=== PATIENT | female | born 1995 | race Caucasian/White ===

== ENCOUNTER 2017-03-21 10:48 | Emergency (ER) | payer BC ==
[~2017-03-21] VITALS: Ht 165.1 cm; Wt 56.0 kg
[2017-03-21 10:51] VITALS: TEMP 37; Ht 165.1 cm; Wt 56.0 kg
[2017-03-21] MEDS ORDERED: BCPILLS PO (11:19)
[2017-03-21] MEDS ORDERED: SODIUM CHLORIDE 0.9% 1000ML 1,000 ML IV STA (11:23)
[2017-03-21 11:31] LABS: BASO % 1.1 %; BASO ABS # 0.08 K/uL (0-0.2); EOS ABS # 0.23 K/uL (0-0.5); HEMATOCRIT 40.2 % (37-47); HEMOGLOBIN 14.1 g/dL (12.0-16.0); IG# 0.02 K/uL (0.00-0.02); LYMPH % 32.3 %; LYMPH ABS # 2.45 K/uL (1.2-3.4); MEAN CELL VOLUME 86.8 fL (80-100); MEAN CORPUSCULAR HEMOGLOBIN 30.5 pg (25-34); MEAN CORPUSCULAR HGB CONC 35.1 g/dl (32-36); MEAN PLATELET VOLUME 9.4 fL (7.4-10.4); MONO % 4.7 %; MONO ABS # 0.36 K/uL (0.11-0.59); NEUT % 58.6 %; NEUT ABS # 4.44 K/uL (1.4-6.5); PLATELET COUNT 289 K/uL (130-400); RED CELL DISTRIBUTION WIDTH CV 12.9 % (11.5-14.5); RED CELL DISTRIBUTION WIDTH SD 41.3 fL (36.4-46.3); WHITE BLOOD COUNT 7.58 K/uL (4.8-10.8)
[2017-03-21 11:42] LABS: ALBUMIN 3.9 gm/dl (3.4-5.0); CREATININE 0.81 mg/dl (0.60-1.20); POTASSIUM 3.6 mmol/L (3.5-5.1)
[2017-03-21] MEDS ORDERED: OPTIRAY 320 IV PRN (11:45)
[2017-03-21 11:53] LABS: TOTAL PROTEIN 7.7 gm/dl (6.4-8.2)
--- NOTE | 2017-03-21 14:37 | DIAGNOSTIC IMAGING REPORT ---
CT ABD/PELVIS IV AND ORAL CONT CLINICAL HISTORY: Persistent diarrhea, bright red blood in stool. Watery stools. Abdominal pain. COMPARISON STUDY: None. TECHNIQUE: Following the IV administration of 119 mL of Optiray-320, CT scan of the abdomen and pelvis was performed from the lung bases to the proximal femurs. Images are reviewed in the axial, sagittal, and coronal planes. IV contrast was administered without complication. A dose lowering technique was utilized adhering to the principles of ALARA. CT DOSE: 277.02 mGy.cm FINDINGS: Lower chest: The heart is normal in size and configuration, without pericardial effusion. The lung bases and pleural spaces are clear. Liver: The contrast-enhanced liver is normal in size, contour, and attenuation. There is no intrahepatic biliary ductal dilatation. The hepatic veins and portal veins are patent. Gallbladder: Unremarkable. Spleen: Normal in size and attenuation. Pancreas: Unremarkable. Adrenal glands: Unremarkable. Kidneys: There is symmetric renal cortical enhancement. The kidneys are normal in size without hydronephrosis. Bowel: There are no transition zones to indicate bowel obstruction. There is no acute diverticulitis. There is borderline rectal wall thickening versus a nondistended segment area There are no findings to indicate acute appendicitis. Peritoneum: There is trace free fluid likely physiologic Vasculature: The abdominal aorta is normal in course and caliber. Adenopathy: None. Pelvic viscera: The bladder, and pelvic viscera are unremarkable. Skeletal structures: No destructive osseous lesions are seen. IMPRESSION: 1. Borderline rectal wall thickening versus nondistended bowel. Otherwise no acute findings. No evidence of bowel obstruction. No evidence of free air. No evidence of acute appendicitis. No evidence of acute diverticulitis. Electronically signed by: Hamlet Goyal M.D. 03/21/2017 2:35 PM Dictated Date/Time: 03/21/2017 2:30 PM
--- NOTE | 2017-03-21 17:32 | EMERGENCY ROOM VISIT NOTE ---
History First contact with patient: 11:14 Chief Complaint: DIARRHEA Stated Complaint: ALANIS/ABD PAIN, SENT FROM [employer] [facility] History of Present Illness The patient is a 21 year old female who presents to the Emergency Room via private vehicle with complaints of "diarrhea, abdominal pain, sent from [email or web address]". The patient states that she has had diarrhea now for almost a month and notes that it has now worsened over the past week and now over the past few days she is experiencing 3-4 episodes per hour. It is watery in nature and she notes that every time she eats or drinks something it seems to go right through her and that she has diarrhea. She states that she has missed work because of this. She states that she was seen at [facility] today who sent her here for evaluation. She rates the overall pain as a 4/0. She denies chance of . She denies a history of Crohn's or ulcerative colitis. She does note that a few years ago back in 2011 she was diagnosed with colitis and was hospitalized at that time and had her appendix removed. She denies any fevers or chills. Review of Systems A complete 10-point Review of Systems was discussed with the patient, with pertinent positives and negatives listed in the History of Present Illness. All remaining Review of Systems questions can be considered negative unless otherwise specified. Past Medical/Surgical History Colitis in 2011 Family History No pertinent. Social History Patient lives locally and is a [employer] student. Current/Historical Medications Scheduled Control Pills ( Control Pills), 1 TAB PO DAILY Physical Exam Vital Signs Date Time Temp Pulse Resp B/P (MAP) Pulse Ox O2 Delivery O2 Flow Rate FiO2 03/21/17 17:43 81 16 100/68 100 03/21/17 15:14 71 16 108/74 98 03/21/17 12:31 78 16 109/85 99 03/21/17 11:36 92 14 109/84 98 Room Air 03/21/17 10:51 37.0 92 16 127/80 98 Room Air Physical Exam VITAL SIGNS - Vital signs and nursing notes were reviewed. Stable. Afebrile. GENERAL -21-year-old female appearing her stated age who is in no acute distress. She is nontoxic in appearance. Communicates well with provider and answers questions appropriately. SKIN - Without rashes. No petechial rashes. HEAD - NC/AT. EYES - Sclera anicteric. LUNGS - Chest wall symmetric without accessory muscle use, intercostals retractions, or central cyanosis. Normal vesicular breath sounds CTA B/L. No wheezes, rales, or rhonchi appreciated. CARDIAC - RRR with S1/S2. No murmur, rubs, or gallops appreciated. ABDOMEN - Abdominal contour normal without pulsations or visible masses. BS normoactive all four quadrants. There is generalized lower quadrant abdominal tenderness noted. No palpable masses, hepatosplenomegaly, or ascites noted. Medical Decision & Procedures ER Provider Diagnostic Interpretation: CT ABD/PELVIS IV AND ORAL CONT CLINICAL HISTORY: Persistent diarrhea, bright red blood in stool. Watery stools. Abdominal pain. COMPARISON STUDY: None. TECHNIQUE: Following the IV administration of 119 mL of Optiray-320, CT scan of the abdomen and pelvis was performed from the lung bases to the proximal femurs. Images are reviewed in the axial, sagittal, and coronal planes. IV contrast was administered without complication. A dose lowering technique was utilized adhering to the principles of ALARA. CT DOSE: 277.02 mGy.cm FINDINGS: Lower chest: The heart is normal in size and configuration, without pericardial effusion. The lung bases and pleural spaces are clear. Liver: The contrast-enhanced liver is normal in size, contour, and attenuation. There is no intrahepatic biliary ductal dilatation. The hepatic veins and portal veins are patent. Gallbladder: Unremarkable. Spleen: Normal in size and attenuation. Pancreas: Unremarkable. Adrenal glands: Unremarkable. Kidneys: There is symmetric renal cortical enhancement. The kidneys are normal in size without hydronephrosis. Bowel: There are no transition zones to indicate bowel obstruction. There is no acute diverticulitis. There is borderline rectal wall thickening versus a nondistended segment area There are no findings to indicate acute appendicitis. Peritoneum: There is trace free fluid likely physiologic Vasculature: The abdominal aorta is normal in course and caliber. Adenopathy: None. Pelvic viscera: The bladder, and pelvic viscera are unremarkable. Skeletal structures: No destructive osseous lesions are seen. IMPRESSION: 1. Borderline rectal wall thickening versus nondistended bowel. Otherwise no acute findings. No evidence of bowel obstruction. No evidence of free air. No evidence of acute appendicitis. No evidence of acute diverticulitis. Electronically signed by: Hamlet Goyal M.D. 03/21/2017 2:35 PM Dictated Date/Time: 03/21/2017 2:30 PM Laboratory Results 03/21/17 11:10 Red Blood Count 4.63, Mean Corpuscular Volume 86.8, Mean Corpuscular Hemoglobin 30.5, Mean Corpuscular Hemoglobin Concent 35.1, Mean Platelet Volume 9.4, Neutrophils (%) (Auto) 58.6, Lymphocytes (%) (Auto) 32.3, Monocytes (%) (Auto) 4.7, Eosinophils (%) (Auto) 3.0, Basophils (%) (Auto) 1.1, Neutrophils # (Auto) 4.44, Lymphocytes # (Auto) 2.45, Monocytes # (Auto) 0.36, Eosinophils # (Auto) 0.23, Basophils # (Auto) 0.08 03/21/17 11:10 Test 03/21/17 11:10 03/21/17 14:12 03/21/17 14:13 White Blood Count 7.58 K/uL (4.8-10.8) Red Blood Count 4.63 M/uL (4.2-5.4) Hemoglobin 14.1 g/dL (12.0-16.0) Hematocrit 40.2 % (37-47) Mean Corpuscular Volume 86.8 fL (80-100) Mean Corpuscular Hemoglobin 30.5 pg (25-34) Mean Corpuscular Hemoglobin Concent 35.1 g/dl (32-36) Platelet Count 289 K/uL (130-400) Mean Platelet Volume 9.4 fL (7.4-10.4) Neutrophils (%) (Auto) 58.6 % Lymphocytes (%) (Auto) 32.3 % Monocytes (%) (Auto) 4.7 % Eosinophils (%) (Auto) 3.0 % Basophils (%) (Auto) 1.1 % Neutrophils # (Auto) 4.44 K/uL (1.4-6.5) Lymphocytes # (Auto) 2.45 K/uL (1.2-3.4) Monocytes # (Auto) 0.36 K/uL (0.11-0.59) Eosinophils # (Auto) 0.23 K/uL (0-0.5) Basophils # (Auto) 0.08 K/uL (0-0.2) RDW Standard Deviation 41.3 fL (36.4-46.3) RDW Coefficient of Variation 12.9 % (11.5-14.5) Immature Granulocyte % (Auto) 0.3 % Immature Granulocyte # (Auto) 0.02 K/uL (0.00-0.02) Anion Gap 8.0 mmol/L (3-11) Est Creatinine Clear Calc Drug Dose 98.8 ml/min Estimated GFR () 122.0 Estimated GFR (Non- 105.3 BUN/Creatinine Ratio 14.0 (10-20) Calcium Level 9.0 mg/dl (8.5-10.1) Magnesium Level 2.0 mg/dl (1.8-2.4) Total Bilirubin 0.5 mg/dl (0.2-1) Aspartate Amino Transf (AST/SGOT) 20 U/L (15-37) Alanine Aminotransferase (ALT/SGPT) 31 U/L (12-78) Alkaline Phosphatase 53 U/L (45-117) Total Protein 7.7 gm/dl (6.4-8.2) Albumin 3.9 gm/dl (3.4-5.0) Globulin 3.8 gm/dl (2.5-4.0) Albumin/Globulin Ratio 1.0 (0.9-2) Lipase 139 U/L (73-393) Thyroid Stimulating Hormone (TSH) 1.420 uIu/ml (0.300-4.500) Urine Color YELLOW Urine Appearance CLEAR (CLEAR) Urine pH 6.5 (4.5-7.5) Urine Specific [place] 1.006 (1.000-1.030) Urine Protein NEG (NEG) Urine Glucose (UA) NEG (NEG) Urine Ketones NEG (NEG) Urine Occult Blood NEG (NEG) Urine Nitrite NEG (NEG) Urine Bilirubin NEG (NEG) Urine Urobilinogen NEG (NEG) Urine Leukocyte Esterase NEG (NEG) Urine Test NEG (NEG) Date/Time Source Procedure Growth Status 03/21/17 14:13 Stool C.difficile Toxin B Gene (PCR) - Final No C. difficile toxin B gene detected Complete Medications Administered Medications (Trade) Dose Ordered Sig/Zack Route Start Time Stop Time Status Last Admin Dose Admin Sodium Chloride 1,000 ml @ 999 mls/hr Q1H1M STAT IV 03/21/17 11:23 03/21/17 12:23 DC 03/21/17 11:25 999 MLS/HR Medical Decision Patient was seen and evaluated as above. She presents to us today with diarrhea and abdominal pain. She is nontoxic on exam. She is otherwise healthy. She has no other upper respiratory or constitutional symptoms. IV access was initiated, and the above workup was performed. Benefits versus risk of obtaining CT scan was discussed, and the decision was made to obtain a CT scan of the abdomen and pelvis with IV and oral contrast second to the amount of tenderness and pain she had been experiencing. In regard to her blood work, there is no concerning leukocytosis or anemia. Chemistry panel reveals no evidence of kidney or liver failure. Lipase and TSH normal. Urine negative. Urine test negative. Giardia stool study pending. C. difficile negative. Stool culture and Shigella toxin pending. Vital signs were stable throughout her stay. She was hydrated with normal saline and declined pain medication. CT results reveal questionable thickening in the rectal region otherwise normal study. I suspect she is likely experiencing a viral gastroenteritis that is superimposed upon her underlying chronic IBS. It is also possible that she could be experiencing influenza however given her presentation favor this to be less likely. With lack of elevated white blood cell count or abnormal CT scan I believe that this is likely of nonemergent etiology. By mouth fluid trial was had here and she continued to have diarrhea but was nontoxic. I discussed the case with the attending physician, and subsequently the on-call GI specialist, Dr. Menezes. We feel the patient was stable for outpatient management follow with her family doctor, and if need be to have a GI referral. I believe this is reasonable. I will recommend a bland diet. The patient was educated upon management, educated upon worrisome symptoms in which to return, had questions answered prior to discharge, and was discharged home in good condition. In evaluation and treatment of this patient following differential diagnoses were entertained: Appendicitis, ovarian torsion, gastroenteritis, colitis, ulcerative colitis, Crohn's, among others. Impression Primary Impression: Diarrhea Departure Information Dispostion Home / Self-Care Condition GOOD Referrals No Doctor, Assigned (PCP) Latonia Menezes, DO [facility] Patient Instructions ED Diet [place], [facility] Additional Instructions You have been treated in the Emergency Department your Abdominal Pain and diarrhea. Laboratory results and imaging studies have ruled out any emergent causes for your abdominal pain which would warrant admission or surgery. Please call back here in 2 days for stool culture results ([phone]) Rest, drink plenty of fluids and please refer to attached bland diet handout. For pain control, you can use the following [id number] medicines: - Regular strength (325mg/tab) Tylenol (acetaminophen) 2 tabs every 4-6 hours as needed. Do not exceed 12 tablets in a 24 hour period. Avoid taking more than 3 grams (3000 mg) of Tylenol per day. This includes any other sources of acetaminophen you may take on a regular basis. - Regular strength (200 mg/tab) Advil (ibuprofen) 1-2 tabs every 4-6 hours as needed. Do not exceed a dose of 3200 mg per day. Drink plenty of water and stay well hydrated. As with any trip to the Emergency Department, you should follow-up with your Primary Care Provider from today's visit. Return to the emergency department if your symptoms persist despite treatment plan outlined above or if the following symptoms occur: increased fevers, chills , worsening nausea/vomiting/diarrhea, more blood in your stool or urine. CT ABD/PELVIS IV AND ORAL CONT CLINICAL HISTORY: Persistent diarrhea, bright red blood in stool. Watery stools. Abdominal pain. COMPARISON STUDY: None. TECHNIQUE: Following the IV administration of 119 mL of Optiray-320, CT scan of the abdomen and pelvis was performed from the lung bases to the proximal femurs. Images are reviewed in the axial, sagittal, and coronal planes. IV contrast was administered without complication. A dose lowering technique was utilized adhering to the principles of ALARA. CT DOSE: 277.02 mGy.cm FINDINGS: Lower chest: The heart is normal in size and configuration, without pericardial effusion. The lung bases and pleural spaces are clear. Liver: The contrast-enhanced liver is normal in size, contour, and attenuation. There is no intrahepatic biliary ductal dilatation. The hepatic veins and portal veins are patent. Gallbladder: Unremarkable. Spleen: Normal in size and attenuation. Pancreas: Unremarkable. Adrenal glands: Unremarkable. Kidneys: There is symmetric renal cortical enhancement. The kidneys are normal in size without hydronephrosis. Bowel: There are no transition zones to indicate bowel obstruction. There is no acute diverticulitis. There is borderline rectal wall thickening versus a nondistended segment area There are no findings to indicate acute appendicitis. Peritoneum: There is trace free fluid likely physiologic Vasculature: The abdominal aorta is normal in course and caliber. Adenopathy: None. Pelvic viscera: The bladder, and pelvic viscera are unremarkable. Skeletal structures: No destructive osseous lesions are seen.
[2017-03-21 17:43] VITALS: BP 100/68; PULSE 81; O2SAT 100
== END 2017-03-21 17:44 | disposition home or self-care (01) ==
LOC: C.EDB 10:49 → C.EDC 17:44
DX: R19.7 Diarrhea, unspecified (principal); R10.30 Lower abdominal pain, unspecified

== ENCOUNTER 2017-05-12 18:22 | Emergency (ER) | payer BC ==
[~2017-05-12] VITALS: Ht 165.1 cm; Wt 55.9 kg
[~2017-05-12 18:22] MED LIST: BCPILLS PO
[2017-05-12 18:25] VITALS: TEMP 37.1; Ht 165.1 cm; Wt 55.9 kg
[2017-05-12] MEDS ORDERED: SODIUM CHLORIDE 0.9% 1000ML 1,000 ML IV STA (18:34)
[2017-05-12 18:49] LABS: BASO % 0.5 %; BASO ABS # 0.06 K/uL (0-0.2); EOS % 1.6 %; HEMATOCRIT 43.6 % (37-47); HEMOGLOBIN 15.4 g/dL (12.0-16.0); IG# 0.02 K/uL (0.00-0.02); LYMPH % 28.3 %; LYMPH ABS # 3.51 K/uL (1.2-3.4); MEAN CELL VOLUME 87.4 fL (80-100); MEAN CORPUSCULAR HEMOGLOBIN 30.9 pg (25-34); MEAN CORPUSCULAR HGB CONC 35.3 g/dl (32-36); MEAN PLATELET VOLUME 9.1 fL (7.4-10.4); MONO % 4.3 %; MONO ABS # 0.53 K/uL (0.11-0.59); NEUT % 65.1 %; NEUT ABS # 8.09 K/uL (1.4-6.5); PLATELET COUNT 336 K/uL (130-400); RED CELL DISTRIBUTION WIDTH CV 13.1 % (11.5-14.5); RED CELL DISTRIBUTION WIDTH SD 41.7 fL (36.4-46.3); WHITE BLOOD COUNT 12.41 K/uL (4.8-10.8)
[2017-05-12 19:07] LABS: CALCIUM 9.9 mg/dl (8.5-10.1); CREATININE 0.81 mg/dl (0.60-1.20); POTASSIUM 3.6 mmol/L (3.5-5.1)
[2017-05-12] MEDS ORDERED: DIPH25CA5 PO (19:13)
[2017-05-12] MEDS ORDERED: DICY10CA12 PO (19:13)
[2017-05-12] MEDS ORDERED: CIPROFLOXACIN 500 MG TAB PO STA (19:54)
[2017-05-12] MEDS ORDERED: CIPR-255 PO (20:30)
[2017-05-12 20:39] VITALS: BP 110/60; PULSE 89; O2SAT 98
--- NOTE | 2017-05-12 23:02 | EMERGENCY ROOM VISIT NOTE ---
History Report prepared by Ike: Kimo Orona Under the Supervision of: Dr. Kolton Lima M.D. First contact with patient: 18:27 Chief Complaint: HEMATURIA Stated Complaint: BLOOD IN URINE Nursing Triage Summary: patient c/o burning/ painful urination. patient also c/o blod in urine. patient sent to ER from [facility] to r/o kidney stone History of Present Illness The patient is a 21 year old female who presents to the Emergency Room with complaints of persistent hematuria that began earlier this afternoon, about 3 hours ago. The patient states that she first noticed "red cloudiness" in her urine, and then found a clot when she wiped. She had to urinate again shortly after and she passed another large clot with "a lot" of blood in the toilet bowl. The patient states that there was also "burning" with urinating when she passed these clots. She is having some pain in her lower abdomen over her bladder and was found to have left flank tenderness when she went to [facility] just prior to coming into the ED. She had a urine analysis performed which was questionable for a possible kidney infection/stone. The patient did have a CT scan in March which did not show any stones. She states that she has been nauseous, but has not vomited and there has not been any abnormal vaginal discharge or bleeding. The CT scan in March did show some wall-thickening in the rectum which she has had a colonoscopy for 2 weeks. She reports the colonoscopy was reported as normal although she does not know the biopsy results. Source of History: patient Onset: 3 hours [employer]ICAL [employer] PROF[employer] Position: other (Genitourinary) Quality: burning, other (Hematuria) Timing: other (Persistent) Associated Symptoms: + abdominal pain Review of Systems See HPI for pertinent positives & negatives. A total of 10 systems reviewed and were otherwise negative. Past Medical & Surgical Hx of Appendectomy Family History Cancer Diabetes mellitus Social History Smoking Status: Never Smoker Marital Status: single Housing Status: lives with family, lives with roommate Occupation Status: employed Current/Historical Medications Scheduled Control Pills ( Control Pills), 1 TAB PO DAILY Ciprofloxacin Hcl (Cipro), 500 MG PO BID Scheduled PRN Dicyclomine Hcl (Dicyclomine Hcl), 1 CAP PO QID PRN for PRN Diphenhydramine Hcl (Benadryl), 25 MG PO HS PRN for Sleep Allergies Coded Allergies: Amoxicillin (Verified Adverse Reaction, Severe, SEVERE DIARRHEA, 05/12/17) Physical Exam Vital Signs Date Time Temp Pulse Resp B/P (MAP) Pulse Ox O2 Delivery O2 Flow Rate FiO2 05/12/17 20:39 89 18 110/60 98 05/12/17 18:25 37.1 91 18 123/83 98 Room Air Physical Exam Constitutional: Vital signs reviewed. Eyes: Pupils are equal round reactive to light. Conjunctiva are noninjected. ENT: Pharynx is clear without erythema or exudate. Mucous membranes are moist. Neck supple without meningeal signs. Respiratory: Clear to auscultation bilaterally. Breath sounds are equal bilaterally. Cardiovascular: Regular rate and rhythm. No rubs or gallops. GI: Soft, nondistended and nontender. Bowel sounds are present. Musculoskeletal: No peripheral edema. There is Left CVA tenderness on exam. Integumentary: No cyanosis. Neurological: The patient is awake and alert. No focal deficits. Psychiatric: Normal affect. Medical Decision & Procedures Laboratory Results 05/12/17 18:35 Red Blood Count 4.99, Mean Corpuscular Volume 87.4, Mean Corpuscular Hemoglobin 30.9, Mean Corpuscular Hemoglobin Concent 35.3, Mean Platelet Volume 9.1, Neutrophils (%) (Auto) 65.1, Lymphocytes (%) (Auto) 28.3, Monocytes (%) (Auto) 4.3, Eosinophils (%) (Auto) 1.6, Basophils (%) (Auto) 0.5, Neutrophils # (Auto) 8.09, Lymphocytes # (Auto) 3.51, Monocytes # (Auto) 0.53, Eosinophils # (Auto) 0.20, Basophils # (Auto) 0.06 05/12/17 18:35 Test 05/12/17 18:35 05/12/17 19:15 White Blood Count 12.41 K/uL (4.8-10.8) Red Blood Count 4.99 M/uL (4.2-5.4) Hemoglobin 15.4 g/dL (12.0-16.0) Hematocrit 43.6 % (37-47) Mean Corpuscular Volume 87.4 fL (80-100) Mean Corpuscular Hemoglobin 30.9 pg (25-34) Mean Corpuscular Hemoglobin Concent 35.3 g/dl (32-36) Platelet Count 336 K/uL (130-400) Mean Platelet Volume 9.1 fL (7.4-10.4) Neutrophils (%) (Auto) 65.1 % Lymphocytes (%) (Auto) 28.3 % Monocytes (%) (Auto) 4.3 % Eosinophils (%) (Auto) 1.6 % Basophils (%) (Auto) 0.5 % Neutrophils # (Auto) 8.09 K/uL (1.4-6.5) Lymphocytes # (Auto) 3.51 K/uL (1.2-3.4) Monocytes # (Auto) 0.53 K/uL (0.11-0.59) Eosinophils # (Auto) 0.20 K/uL (0-0.5) Basophils # (Auto) 0.06 K/uL (0-0.2) RDW Standard Deviation 41.7 fL (36.4-46.3) RDW Coefficient of Variation 13.1 % (11.5-14.5) Immature Granulocyte % (Auto) 0.2 % Immature Granulocyte # (Auto) 0.02 K/uL (0.00-0.02) Anion Gap 9.0 mmol/L (3-11) Est Creatinine Clear Calc Drug Dose 98.6 ml/min Estimated GFR () 122.0 Estimated GFR (Non- 105.3 BUN/Creatinine Ratio 13.9 (10-20) Calcium Level 9.9 mg/dl (8.5-10.1) Urine Color YELLOW Urine Appearance CLOUDY (CLEAR) Urine pH 6.0 (4.5-7.5) Urine Specific [place] 1.018 (1.000-1.030) Urine Protein TRACE (NEG) Urine Glucose (UA) NEG (NEG) Urine Ketones TRACE (NEG) Urine Occult Blood 3+ (NEG) Urine Nitrite NEG (NEG) Urine Bilirubin NEG (NEG) Urine Urobilinogen NEG (NEG) Urine Leukocyte Esterase MODERATE (NEG) Urine WBC (Auto) >30 /hpf (0-5) Urine RBC (Auto) >30 /hpf (0-4) Urine Hyaline Casts (Auto) 5-10 /lpf (0-5) Urine Epithelial Cells (Auto) >30 /lpf (0-5) Urine Bacteria (Auto) NEG (NEG) Urine Renal Epithelial Cells /lpf (0-5) Urine Test NEG (NEG) Laboratory results as reviewed by me. Medications Administered Medications (Trade) Dose Ordered Sig/Zack Route Start Time Stop Time Status Last Admin Dose Admin Sodium Chloride 1,000 ml @ 999 mls/hr Q1H1M STAT IV 05/12/17 18:34 05/12/17 19:34 DC 05/12/17 18:34 999 MLS/HR Ciprofloxacin (Cipro Tab) 500 mg NOW STAT PO 05/12/17 19:54 05/12/17 19:56 DC 05/12/17 20:04 500 MG ED Course 1830: The patient was evaluated in room B4B. A complete history and physical exam was performed. 1833: Ordered Sodium Chloride 1000 mL @ 999 mL/hr IV. 1953: Ordered Ciprofloxacin 500 mg PO. 2016: I discussed the test results with the patient at this time. I also discussed Cipro, and its potential adverse effects. The patient expresses understanding and agreement. She will be discharged home. Medical Decision This is a 21-year-old female who presents with urinary symptoms and hematuria. Differential diagnosis includes UTI, pyelonephritis, kidney stone, renal mass, kidney failure. I did perform a limited focused review of portions of the patient's old chart on the electronic medical record. The patient was here in March for diarrhea. CT scan showed questionable thickening in the rectum, there were no kidney stones. I did evaluate the patient as noted above. Patient is presenting with urinary symptoms and hematuria. She has CVA tenderness on the left side on examination. I did not feel a kidney stone was likely as the patient does not have any flank pain other than with percussion. She denies any abdominal pain other than some suprapubic discomfort. She also had a CT recently which did not show any evidence of nephrolithiasis. IV access was established. She was treated with normal saline IV. I did order and personally review the patient's urine analysis as described above. A urine culture was sent. I did treat her with Cipro. Her urine test was negative. I did order and review the patient's blood work as noted in the electronic medical record. Her white blood cell count is slightly elevated. This is consistent with pyelonephritis. I did discuss the test results with the patient. She was informed of her test results. She will follow-up with her doctor. She was given a prescription for 10 days of Cipro and given precautions regarding this medication. Medication Reconcilliation Current Medication List: was personally reviewed by me Blood Pressure Screening Patient's blood pressure: Normal blood pressure Impression Primary Impression: Pyelonephritis Scribe Attestation The scribe's documentation has been prepared under my direct and personally reviewed by me in its entirety. I confirm that the note above accurately reflects all work, treatment, procedures, and medical decision making performed by me. Departure Information Dispostion Home / Self-Care Prescriptions Ciprofloxacin Hcl (CIPRO) 500 Mg Tab 500 MG PO BID, #20 TAB Prov: Kolton Lima M.D. 05/12/17 Referrals No Doctor, Assigned (PCP) Forms HOME CARE DOCUMENTATION FORM, IMPORTANT VISIT INFORMATION, WORK / SCHOOL INSTRUCTIONS Patient Instructions [facility] Additional Instructions You have been examined and treated today on an emergency basis only. This is not a substitute for, or an effort to provide, complete comprehensive medical care. It is impossible to recognize and treat all injuries or illnesses in a single emergency department visit. It is therefore important that you follow up closely with your doctor. Call as soon as possible for an appointment. Return for worsening symptoms or if you develop fever, vomiting, or any other concerning symptoms.
== END 2017-05-12 20:40 | disposition home or self-care (01) ==
LOC: C.EDB 18:23
DX: N10 Acute pyelonephritis (principal); Z79.3 Long term (current) use of hormonal contraceptives; Z88.0 Allergy status to penicillin; Z83.3 Family history of diabetes mellitus